=== PATIENT | male | born 1980 | race Caucasian/White ===

== ENCOUNTER 2021-11-24 11:33 | Emergency (ER) | payer BC ==
[2021-11-24] MEDS ORDERED: DIPHTH,PERTUSS(ACELL),TET 0.5 ML DISP.SYRIN IM ONE ×2 (11:39→11:50)
[2021-11-24 11:52] VITALS: BP 115/68; PULSE 55; TEMP 98.6; BMI 25.8
[2021-11-24] MEDS ORDERED: KETOROLAC TROMETHAMINE 30 MG/1 ML VIAL IM ONE (13:17)
[2021-11-24] MEDS ORDERED: KETOROLAC TROMETHAMINE 30 MG/1 ML VIAL ONE (13:18)
[2021-11-24] MEDS ORDERED: LIDOCAINE HCL 2% (20ML MULTI-DOSE VIAL) ONE (13:48)
== END 2021-11-24 14:31 | disposition home or self-care (01) ==
LOC: FER 11:33
PROC: 3E0234Z Introduction of Serum, Toxoid and Vaccine into Muscle, Percutaneous Approach (ICD-10-PCS; principal; 2021-11-24)
PROC: 3E0233Z Introduction of Anti-inflammatory into Muscle, Percutaneous Approach (ICD-10-PCS; 2021-11-24)
DX: S61.201A Unspecified open wound of left index finger without damage to nail, initial encounter (principal)
CPT/HCPCS: 73130-TC-RT-FY; 90715; 99284-25

== ENCOUNTER 2021-11-26 13:05 | Inpatient (IN) | payer BC ==
[2021-11-26] MEDS ORDERED: ACETAMINOPHEN 1000 MG/100 ML BAG IVPB ONE (13:08)
[2021-11-26] MEDS ORDERED: AMPICILLIN NA/SULBACTAM NA 3 GM in SODIUM CHLORIDE 100 ML IVPB ONE (13:09)
[2021-11-26 13:10] VITALS: BMI 25.8
[2021-11-26] MEDS ORDERED: AMPICILLIN NA/SULBACTAM NA 3 GM VIAL ONE (13:16)
[2021-11-26] MEDS ORDERED: ACETAMINOPHEN INJECTION 100 ML IVPB ONE (13:28)
[2021-11-26 13:54] LABS: ALBUMIN 4.5 g/dl (3.4-5.0); BILIRUBIN,TOTAL 1.3 mg/dl (0.2-1); CALCIUM 9.6 mg/dl (8.5-10); CREATININE 0.7 mg/dl (0.55-1.3); TOT PROT 7.3 g/dl (6.4-8.2)
[2021-11-26 14:31] LABS: ERYTHROCYTE SEDIMENTATION RATE 13 mm/hr (0-10)
[2021-11-26 14:46] LABS: MCH 33.5 pg (25.7-33.7); MEAN CELL VOLUME 93.2 fl (80-96); MEAN PLT VOLUME 7.3 fl (7.5-11.1); PLATELET COUNT 216.9 10^3/uL (134-434); RBC 4.84 10^6/uL (4.00-5.60); RDW 13.2 % (11.9-15.9); WHITE BLOOD COUNT 13.1 10^3/uL (4.0-10.8)
[2021-11-26 14:49] LABS: HEMATOCRIT 45.1 % (35.4-49); HEMOGLOBIN 15.9 G/dL (11.7-16.9)
[2021-11-26] MEDS ORDERED: VANCOMYCIN 1,000 MG VIAL (RESTRICTED TO ID ONLY) ONE (15:24)
[2021-11-26] MEDS ORDERED: VANCOMYCIN 500 MG VIAL (RESTRICTED TO ID ONLY) ONE (15:24)
[2021-11-26] MEDS ORDERED: SODIUM CHLORIDE 1,000 ML IV SCH (15:30)
[2021-11-26 15:35] LABS: PLATELET ESTIMATE ADEQUATE
[2021-11-26] MEDS: VANCOMYCIN/WATER 1,250 MG/250 ML BAG IVPB SCH (15:45)
[2021-11-26] MEDS: oxyCODONE HCL 5 MG TABLET PO PRN ×2 (16:25→19:47)
[2021-11-26] MEDS ORDERED: oxyCODONE HCL 5 MG TABLET ONE (16:27)
[2021-11-26] MEDS ORDERED: PIPERACILLIN/TAZOBACTAM 3.375 GM VIAL IVPB ONE (18:13)
[2021-11-26] MEDS ORDERED: DEXTROSE 5%-WATER - 50 ML IVPB ONE (18:13)
[2021-11-26] MEDS: ACETAMINOPHEN 1000 MG/100 ML BAG IVPB SCH (20:58)
[2021-11-26] MEDS: PIPERACILLIN/TAZOB 3.375 GM 3.375 GM in DEXTROSE 5%-WATER - 50 ML IVPB SCH (21:02)
[2021-11-26] MEDS ORDERED: ZOLPIDEM TARTRATE 5 MG TABLET PO ONE (22:08)
[2021-11-27] MEDS: ACETAMINOPHEN 1000 MG/100 ML BAG IVPB SCH ×5 (00:54→21:22)
[2021-11-27] MEDS ORDERED: DEXTROSE 5%-WATER - 50 ML IVPB ONE ×4 (01:32→23:43)
[2021-11-27] MEDS ORDERED: PIPERACILLIN/TAZOBACTAM 3.375 GM VIAL IVPB ONE ×4 (01:32→23:42)
[2021-11-27] MEDS: VANCOMYCIN/WATER 1,250 MG/250 ML BAG IVPB SCH (02:53)
[2021-11-27] MEDS: PIPERACILLIN/TAZOB 3.375 GM 3.375 GM in DEXTROSE 5%-WATER - 50 ML IVPB SCH ×3 (03:05→17:32)
[2021-11-27] MEDS ORDERED: SODIUM CHLORIDE 0.45% 1,000 ML IV SCH (08:15)
[2021-11-27 08:24] LABS: ALBUMIN 4.1 g/dl (3.4-5.0); BILIRUBIN,TOTAL 1.4 mg/dl (0.2-1); CALCIUM 9.4 mg/dl (8.5-10); CREATININE 0.8 mg/dl (0.55-1.3); MAGNESIUM 1.9 mg/dL (1.8-2.4); TOT PROT 6.8 g/dl (6.4-8.2)
[2021-11-27] MEDS: oxyCODONE HCL 5 MG TABLET PO PRN ×3 (08:26→23:12)
[2021-11-27 08:35] LABS: HEMATOCRIT 43.2 % (35.4-49); MCH 33.6 pg (25.7-33.7); MCHC 35.9 g/dl (32.0-35.9); MEAN CELL VOLUME 93.5 fl (80-96); PLATELET COUNT 220.1 10^3/uL (134-434); RBC 4.62 10^6/uL (4.00-5.60); RDW 13.2 % (11.9-15.9); WHITE BLOOD COUNT 11.7 10^3/uL (4.0-10.8)
[2021-11-27 09:19] LABS: HEMOGLOBIN 15.5 G/dL (11.7-16.9)
[2021-11-27] MEDS ORDERED: VANCOMYCIN/WATER 1,250 MG/250 ML BAG IVPB SCH (15:15)
[2021-11-27] MEDS ORDERED: PIPERACILLIN/TAZOB 3.375 GM 3.375 GM in DEXTROSE 5%-WATER - 50 ML IVPB SCH (18:00)
[2021-11-27] MEDS ORDERED: LIDOCAINE HCL 2% (20ML MULTI-DOSE VIAL) ONE (18:39)
[2021-11-27] MEDS ORDERED: BUPIVACAINE HCL 100 ML ONE (18:39)
[2021-11-27] MEDS ORDERED: MIDAZOLAM HCL 2 MG/2 ML SINGLE DOSE VIAL ONE (18:43)
[2021-11-27] MEDS ORDERED: SUCCINYLCHOLINE CHLORIDE 200 MG/10 ML SYRINGE ONE (18:48)
[2021-11-27] MEDS ORDERED: PROPOFOL 20 ML ONE ×3 (18:48→19:27)
[2021-11-27] MEDS ORDERED: BACITRACIN 15 GM TUBE TOPICAL OINTMENT ONE (19:41)
[2021-11-27] MEDS ORDERED: LACTATED RINGERS SOLUTION 1,000 ML IV SCH (20:30)
[2021-11-27] MEDS ORDERED: VANCOMYCIN HCL 1,250 MG in DEXTROSE 5%-WATER - 250 ML IVPB SCH (22:00)
[2021-11-28] MEDS: PIPERACILLIN/TAZOB 3.375 GM 3.375 GM in DEXTROSE 5%-WATER - 50 ML IVPB SCH ×4 (01:29→18:53)
[2021-11-28] MEDS ORDERED: MELATONIN 5 MG TABLETS PO ONE (02:10)
[2021-11-28] MEDS: ACETAMINOPHEN 1000 MG/100 ML BAG IVPB SCH ×4 (02:29→21:16)
[2021-11-28] MEDS: oxyCODONE HCL 5 MG TABLET PO PRN ×4 (07:06→20:21)
[2021-11-28] MEDS ORDERED: PIPERACILLIN/TAZOBACTAM 3.375 GM VIAL IVPB ONE ×2 (09:40→18:49)
[2021-11-28] MEDS ORDERED: DEXTROSE 5%-WATER - 50 ML IVPB ONE ×2 (09:40→18:49)
[2021-11-28 12:27] LABS: HEMATOCRIT 41.8 % (35.4-49); HEMOGLOBIN 14.7 G/dL (11.7-16.9); MCH 32.7 pg (25.7-33.7); MEAN CELL VOLUME 93.2 fl (80-96); MEAN PLT VOLUME 7.1 fl (7.5-11.1); PLATELET COUNT 235.7 10^3/uL (134-434); RBC 4.48 10^6/uL (4.00-5.60); RDW 12.9 % (11.9-15.9); WHITE BLOOD COUNT 14.2 10^3/uL (4.0-10.8)
[2021-11-28 13:52] LABS: PLATELET ESTIMATE ADEQUATE
[2021-11-28] MEDS: BACITRACIN 15 GM TUBE TOPICAL OINTMENT TP SCH ×2 (15:18→21:15)
[2021-11-28] MEDS: ZOLPIDEM TARTRATE 5 MG TABLET PO PRN (21:16)
[2021-11-29] MEDS: PIPERACILLIN/TAZOB 3.375 GM 3.375 GM in DEXTROSE 5%-WATER - 50 ML IVPB SCH ×3 (02:00→17:33)
[2021-11-29] MEDS ORDERED: PIPERACILLIN/TAZOBACTAM 3.375 GM VIAL IVPB ONE ×4 (04:40→23:18)
[2021-11-29] MEDS ORDERED: DEXTROSE 5%-WATER - 50 ML IVPB ONE ×4 (04:40→23:19)
[2021-11-29] MEDS: ACETAMINOPHEN 1000 MG/100 ML BAG IVPB SCH ×4 (04:43→21:14)
[2021-11-29] MEDS: oxyCODONE HCL 5 MG TABLET PO PRN ×4 (04:50→20:36)
[2021-11-29] MEDS: BACITRACIN 15 GM TUBE TOPICAL OINTMENT TP SCH ×2 (05:26→21:27)
[2021-11-29 08:46] LABS: HEMATOCRIT 39.7 % (35.4-49); HEMOGLOBIN 14.1 G/dL (11.7-16.9); MCH 33.4 pg (25.7-33.7); MCHC 35.5 g/dl (32.0-35.9); MEAN CELL VOLUME 94.1 fl (80-96); MEAN PLT VOLUME 7.1 fl (7.5-11.1); PLATELET COUNT 215.5 10^3/uL (134-434); RBC 4.22 10^6/uL (4.00-5.60); RDW 13.6 % (11.9-15.9); WHITE BLOOD COUNT 7.9 10^3/uL (4.0-10.8)
[2021-11-29] MEDS: ENOXAPARIN NA (PORCINE) 40 MG/0.4 ML DISP.SYRIN SQ SCH (13:46)
[2021-11-29] MEDS: ZOLPIDEM TARTRATE 5 MG TABLET PO PRN (21:14)
[2021-11-30] MEDS: PIPERACILLIN/TAZOB 3.375 GM 3.375 GM in DEXTROSE 5%-WATER - 50 ML IVPB SCH ×3 (01:08→17:13)
[2021-11-30] MEDS: ACETAMINOPHEN 1000 MG/100 ML BAG IVPB SCH ×4 (03:17→21:27)
[2021-11-30] MEDS: oxyCODONE HCL 5 MG TABLET PO PRN ×3 (03:26→17:13)
[2021-11-30] MEDS: BACITRACIN 15 GM TUBE TOPICAL OINTMENT TP SCH ×3 (07:03→23:08)
[2021-11-30] MEDS ORDERED: DEXTROSE 5%-WATER - 50 ML IVPB ONE ×3 (09:31→23:48)
[2021-11-30] MEDS ORDERED: PIPERACILLIN/TAZOBACTAM 3.375 GM VIAL IVPB ONE ×3 (09:31→23:48)
[2021-11-30 09:38] LABS: HEMATOCRIT 41.7 % (35.4-49); HEMOGLOBIN 14.7 G/dL (11.7-16.9); MCHC 35.3 g/dl (32.0-35.9); MEAN CELL VOLUME 93.2 fl (80-96); MEAN PLT VOLUME 7.1 fl (7.5-11.1); PLATELET COUNT 220.3 10^3/uL (134-434); RBC 4.47 10^6/uL (4.00-5.60); RDW 12.8 % (11.9-15.9); WHITE BLOOD COUNT 6.4 10^3/uL (4.0-10.8)
[2021-11-30] MEDS: ENOXAPARIN NA (PORCINE) 40 MG/0.4 ML DISP.SYRIN SQ SCH (09:52)
[2021-11-30] MEDS ORDERED: LORazepam 0.5 MG TABLET PO ONE (12:40)
[2021-11-30] MEDS: ZOLPIDEM TARTRATE 5 MG TABLET PO PRN (22:06)
[2021-12-01] MEDS: PIPERACILLIN/TAZOB 3.375 GM 3.375 GM in DEXTROSE 5%-WATER - 50 ML IVPB SCH ×3 (01:46→18:34)
[2021-12-01] MEDS: ACETAMINOPHEN 1000 MG/100 ML BAG IVPB SCH ×4 (04:16→20:45)
[2021-12-01] MEDS: BACITRACIN 15 GM TUBE TOPICAL OINTMENT TP SCH ×3 (06:55→21:18)
[2021-12-01] MEDS ORDERED: DEXTROSE 5%-WATER - 50 ML IVPB ONE ×3 (10:14→23:31)
[2021-12-01] MEDS ORDERED: PIPERACILLIN/TAZOBACTAM 3.375 GM VIAL IVPB ONE ×3 (10:14→23:31)
[2021-12-01] MEDS: oxyCODONE HCL 5 MG TABLET PO PRN ×3 (10:23→21:00)
[2021-12-01] MEDS: ENOXAPARIN NA (PORCINE) 40 MG/0.4 ML DISP.SYRIN SQ SCH (10:24)
[2021-12-01] MEDS: ZOLPIDEM TARTRATE 5 MG TABLET PO PRN (20:45)
[2021-12-02] MEDS: ACETAMINOPHEN 1000 MG/100 ML BAG IVPB SCH ×5 (00:02→23:52)
[2021-12-02] MEDS: PIPERACILLIN/TAZOB 3.375 GM 3.375 GM in DEXTROSE 5%-WATER - 50 ML IVPB SCH ×3 (02:39→18:57)
[2021-12-02] MEDS: oxyCODONE HCL 5 MG TABLET PO PRN ×2 (06:20→10:37)
[2021-12-02] MEDS: BACITRACIN 15 GM TUBE TOPICAL OINTMENT TP SCH ×3 (07:39→22:31)
[2021-12-02 08:08] LABS: ALBUMIN 4.2 g/dl (3.4-5.0); BILIRUBIN,TOTAL 0.9 mg/dl (0.2-1); CALCIUM 10.1 mg/dl (8.5-10); CREATININE 0.8 mg/dl (0.55-1.3); TOT PROT 7.4 g/dl (6.4-8.2)
[2021-12-02 08:31] LABS: HEMATOCRIT 49.9 % (35.4-49); HEMOGLOBIN 17.6 G/dL (11.7-16.9); MCH 32.6 pg (25.7-33.7); MCHC 35.2 g/dl (32.0-35.9); MEAN CELL VOLUME 92.8 fl (80-96); PLATELET COUNT 271.9 10^3/uL (134-434); RBC 5.38 10^6/uL (4.00-5.60); WHITE BLOOD COUNT 8.6 10^3/uL (4.0-10.8)
[2021-12-02] MEDS ORDERED: DEXTROSE 5%-WATER - 50 ML IVPB ONE ×3 (09:16→23:40)
[2021-12-02] MEDS ORDERED: PIPERACILLIN/TAZOBACTAM 3.375 GM VIAL IVPB ONE ×4 (09:16→23:40)
[2021-12-02] MEDS: ENOXAPARIN NA (PORCINE) 40 MG/0.4 ML DISP.SYRIN SQ SCH (13:31)
[2021-12-02] MEDS ORDERED: oxyCODONE HCL 5 MG TABLET PO PRN (14:43)
[2021-12-02] MEDS ORDERED: ceFAZolin SODIUM 1 GM VIAL ONE (15:22)
[2021-12-02] MEDS ORDERED: MIDAZOLAM HCL 2 MG/2 ML SINGLE DOSE VIAL ONE (16:37)
[2021-12-02] MEDS ORDERED: PROPOFOL 20 ML ONE (16:37)
[2021-12-02] MEDS ORDERED: KETOROLAC TROMETHAMINE 30 MG/1 ML VIAL ONE (16:47)
[2021-12-02] MEDS ORDERED: DEXAMETHASONE SOD PHOSPHATE 4 MG/1 ML VIAL ONE (16:47)
[2021-12-02] MEDS ORDERED: ONDANSETRON 4 MG/2 ML VIAL ONE ×2 (16:47→17:18)
[2021-12-02] MEDS ORDERED: LIDOCAINE HCL 2% (20ML MULTI-DOSE VIAL) ONE (16:49)
[2021-12-02] MEDS ORDERED: BACITRACIN 15 GM TUBE TOPICAL OINTMENT ONE (17:35)
[2021-12-02] MEDS ORDERED: ONDANSETRON 4 MG/2 ML VIAL IVPUSH PRN (18:00)
[2021-12-02] MEDS ORDERED: HYDROmorphone HCL 2 MG TABLET PO PRN (18:01)
[2021-12-02] MEDS ORDERED: KETOROLAC TROMETHAMINE 30 MG/1 ML VIAL IVPUSH PRN (18:50)
[2021-12-03] MEDS: PIPERACILLIN/TAZOB 3.375 GM 3.375 GM in DEXTROSE 5%-WATER - 50 ML IVPB SCH ×2 (01:36→09:51)
[2021-12-03] MEDS: KETOROLAC TROMETHAMINE 30 MG/1 ML VIAL IVPUSH SCH ×3 (01:36→10:48)
[2021-12-03] MEDS: ACETAMINOPHEN 1000 MG/100 ML BAG IVPB SCH ×2 (06:30→10:47)
[2021-12-03] MEDS: BACITRACIN 15 GM TUBE TOPICAL OINTMENT TP SCH ×2 (06:31→14:42)
[2021-12-03] MEDS ORDERED: morphine SULFATE 4 MG/ML VIAL IVPUSH PRN (07:59)
[2021-12-03 08:21] LABS: BILIRUBIN,TOTAL 0.7 mg/dl (0.2-1); CALCIUM 9.9 mg/dl (8.5-10); CREATININE 0.8 mg/dl (0.55-1.3); HEMATOCRIT 47.7 % (35.4-49); HEMOGLOBIN 17.1 G/dL (11.7-16.9); MCH 33.2 pg (25.7-33.7); MCHC 35.9 g/dl (32.0-35.9); MEAN CELL VOLUME 92.4 fl (80-96); MEAN PLT VOLUME 6.5 fl (7.5-11.1); PLATELET COUNT 303.5 10^3/uL (134-434); RBC 5.16 10^6/uL (4.00-5.60); RDW 12.7 % (11.9-15.9); TOT PROT 7.2 g/dl (6.4-8.2); WHITE BLOOD COUNT 14.4 10^3/uL (4.0-10.8)
[2021-12-03] MEDS ORDERED: PIPERACILLIN/TAZOBACTAM 3.375 GM VIAL IVPB ONE (09:41)
[2021-12-03 09:42] VITALS: BP 143/73; PULSE 58; TEMP 97.9
[2021-12-03] MEDS ORDERED: DEXTROSE 5%-WATER - 50 ML IVPB ONE (09:42)
[2021-12-03] MEDS ORDERED: ACETAMINOPHEN 1000 MG/100 ML BAG IVPB SCH (12:30)
[2021-12-03] MEDS ORDERED: DAPTOMYCIN 650 MG in SODIUM CHLORIDE 50 ML IVPB ONE ×2 (14:14→15:00)
[2021-12-03] MEDS ORDERED: CEFTRIAXONE 2 GM in DEXTROSE 5%-WATER - 100 ML IVPB ONE (14:30)
[2021-12-03] MEDS ORDERED: DEXTROSE 5%-WATER - 100 ML IVPB ONE (14:34)
== END 2021-12-03 16:56 | disposition home or self-care (01) | DRG 558 ==
LOC: FER 13:05 → FM/S 14:50
PROVIDERS: ADMIT Internal Medicine; ATTEND Nurse Practitioner Acute Care
PROC: 3E10X8Z Irrigation of Skin and Mucous Membranes using Irrigating Substance (ICD-10-PCS; principal; 2021-11-27 19:11)
PROC: 3E10X8Z Irrigation of Skin and Mucous Membranes using Irrigating Substance (ICD-10-PCS; 2021-12-02)
PROC: 02HV33Z Insertion of Infusion Device into Superior Vena Cava, Percutaneous Approach (ICD-10-PCS; 2021-12-02)
DX: M65.841 Other synovitis and tenosynovitis, right hand (principal); L03.113 Cellulitis of right upper limb; L08.89 Other specified local infections of the skin and subcutaneous tissue; D72.829 Elevated white blood cell count, unspecified
CPT/HCPCS: 36415; 36569; 80053; 80307; 82306; 82330; 82550; 83735; 83970; 85025; 85027; 85651; 86140; 87040; 87070; 87102; 87116; 87186; 87205; 87206; 87210; 94760; 97162-GP; 99285-25; C9803-CS; J0878; U0003; U0005

== ENCOUNTER → 2021-12-04 | Day surgery (SDC) | payer BC ==
[~2021-12-04] MED LIST: CEFTRIAXONE 2 GM in DEXTROSE 5%-WATER 100 ML IVPB ONE; DAPTOMYCIN 650 MG in SODIUM CHLORIDE 50 ML IVPB ONE
[2021-12-04 12:08] VITALS: TEMP 98.4
[2021-12-04 12:48] VITALS: BP 147/72; PULSE 55
== END | disposition home or self-care (01) ==
LOC: FINFUSION 11:14
PROVIDERS: ATTEND Internal Medicine Infectious Disease
DX: M65.841 Other synovitis and tenosynovitis, right hand (principal)
CPT/HCPCS: 96365; 96366; 96367; J0878

== ENCOUNTER 2021-12-05 11:31 | Day surgery (SDC) | payer BC ==
[2021-12-05] MEDS ORDERED: DEXTROSE 5%-WATER - 100 ML IVPB ONE (11:44)
[2021-12-05] MEDS ORDERED: CEFTRIAXONE 2 GM in DEXTROSE 5%-WATER - 100 ML IVPB ONE (12:00)
[2021-12-05] MEDS ORDERED: DAPTOMYCIN 650 MG in SODIUM CHLORIDE 50 ML IVPB ONE (12:30)
[2021-12-05 13:20] VITALS: BP 139/73; PULSE 54; TEMP 99
== END 2021-12-05 13:33 | disposition home or self-care (01) ==
LOC: FM/S 11:31 → FINFUSION 11:31
PROVIDERS: ATTEND Internal Medicine Infectious Disease
DX: M65.841 Other synovitis and tenosynovitis, right hand (principal)
CPT/HCPCS: 96365; 96367; J0878

== ENCOUNTER 2021-12-06 11:10 | Day surgery (SDC) | payer BC ==
[~2021-12-06 11:10] MED LIST changes: -DAPTOMYCIN 650 MG in SODIUM CHLORIDE 50 ML IVPB ONE
[2021-12-06] MEDS ORDERED: DEXTROSE 5%-WATER 100 ML IVPB ONE (11:16)
[2021-12-06] MEDS ORDERED: DAPTOMYCIN 650 MG in SODIUM CHLORIDE 50 ML IVPB ONE (12:00)
[2021-12-06 12:33] VITALS: BP 137/78; PULSE 57; TEMP 98.2
== END 2021-12-06 12:32 | disposition home or self-care (01) ==
LOC: FM/S 11:10 → FINFUSION 11:10
PROVIDERS: ATTEND Internal Medicine Infectious Disease
DX: M65.841 Other synovitis and tenosynovitis, right hand (principal)
CPT/HCPCS: 96365; 96367; J0878